=== PATIENT | male | born 1965 | race Caucasian/White ===

== ENCOUNTER 2024-02-18 08:18 | Outpatient (OUT) | payer OTHER, SELFPAY ==
[2024-02-18 08:39] LABS: Basophils Absolute Auto 0.1 10^3/uL (0.0-0.1); Basophils Percent Auto 0.6 % (0.2-2.0); Eosinophils Absolute Auto 0.1 10^3/uL (0.0-0.7); Eosinophils Percent Auto 1.6 % (0.9-7.0); Hematocrit 45.2 % (42.0-54.0); Hemoglobin 14.7 g/dL (14.0-18.0); Immature Granulocytes Abs Auto 0.04 10^3/uL (0.00-0.03); Immature Granulocytes Pct Auto 0.5 % (0.0-0.5); Lymphocytes Absolute Auto 2.5 10^3/uL (1.2-3.8); Lymphocytes Percent Auto 30.1 % (20.5-60.0); Mean Corpuscular HGB Conc 32.5 g/dL (29.9-35.2); Mean Corpuscular Hemoglobin 28.1 pg (25.9-34.0); Mean Corpuscular Volume 86.3 fL (80.0-94.0); Monocytes Absolute Auto 0.7 10^3/uL (0.3-0.8); Monocytes Percent Auto 8.1 % (1.7-12.0); Neutrophils Absolute Auto 4.9 10^3/uL (1.4-6.5); Neutrophils Percent Auto 59.1 % (43.0-75.0); Platelet Count 236 10^3/uL (150-450); Red Blood Count 5.24 10^6/uL (4.70-6.10); Red Cell Distribution Width 12.7 % (11.0-15.0); White Blood Count 8.3 10^3/uL (4.0-11.0)
[2024-02-18 09:26] LABS: Alanine Aminotransferase 38 U/L (16-63); Albumin Globulin Ratio 0.8; Albumin Level 3.4 g/dL (3.4-5.0); Alkaline Phosphatase 64 U/L (46-116); Anion Gap 13.3; Aspartate Amino Transferase 22 U/L (15-37); BUN Creatinine Ratio 15.5; Bilirubin Total 0.6 mg/dL (0.2-1.0); Calcium 9.1 mg/dL (8.5-10.1); Carbon Dioxide 25.9 mmol/L (21.0-32.0); Chloride 103 mmol/L (98-107); Chol HDL Ratio 5.3; Cholesterol 233 mg/dL (<=200); Estimated GFR (African America >60 (>=60); Estimated GFR (Non-African Ame >60 (>=60); Free T3 2.91 pg/mL (2.18-3.98); Globulin 4.3 g/dL; Glucose 131 mg/dL (74-106); HDL Cholesterol 44 mg/dL (40-60); Potassium 4.2 mmol/L (3.5-5.1); Sodium 138 mmol/L (136-145); Thyroid Stimulating Hormone 2.698 uIU/mL (0.358-3.740); Total Protein 7.7 g/dL (6.4-8.2); Triglycerides 204 mg/dL (<=150); VLDL CHOLESTEROL 40.8 mg/dL
[2024-02-18 09:31] LABS: Prostate Specific Antigen Scrn 3.47 ng/mL (<=4.00)
[2024-02-18 09:33] LABS: Estimated Average Glucose 131 mg/dL; Glycohemoglobin A1C 6.2 % (4.5-6.2)
[2024-02-19 08:11] LABS: Testosterone 222 ng/dL (264-916)
[2024-02-20 15:07] LABS: Insulin 27.5 uIU/mL (2.6-24.9)
== END 2024-02-18 08:19 | disposition home or self-care (01) ==
LOC: LAB 08:20
PROVIDERS: PCP Family Medicine; Visit Provider Family Medicine
DX: Z00.00 Encounter for general adult medical examination without abnormal findings (principal)
CPT/HCPCS: 36415; 80053; 80061; 83036; 83525; 84403; 84436; 84443; 84481; 85025; G0103

== ENCOUNTER 2024-03-11 11:49 | Outpatient (REF) | payer OTHER, SELFPAY ==
[2024-03-11 12:30] LABS: Occult Blood Negative
== END 2024-03-11 11:50 | disposition home or self-care (01) ==
LOC: LAB 11:49
PROVIDERS: PCP Family Medicine; Visit Provider Family Medicine
DX: Z00.00 Encounter for general adult medical examination without abnormal findings (principal)
CPT/HCPCS: G0328

== ENCOUNTER 2024-11-30 07:29 | Emergency (ER) | payer OTHER, SELFPAY ==
[2024-11-30 07:36] VITALS: BP 152/91; PULSE 97; TEMP 37.1; O2SAT 98; BMI 36.0
[2024-11-30 07:40] VITALS: O2SAT 98
--- OUTSIDE RECORDS SUMMARY | 2024-11-30 07:48 | XMS_ITS | CCD ---
Author Organization [facility] [employer] Care Team Providers Care Tongue And Quarter Stitcher Name Role Phone DR SKYLAR GARCIA Admitting Unavailable DR SKYLAR GARCIA Attending Unavailable DR SKYLAR GARCIA Primary Care Unavailable Encounters Encounter Date Encounter Type Care Provider Facility Start: 11-30-[address] SKYLAR GARCIA Facility : Payers Date Payer Category Payer Unknown [id number] 1959 Self-pay [id number] Summary Purpose Family History No Family History Records Found Advance Directives No Advanced Directives Records Found Additional Source Comments (unrecognized sect ion and content) No Status Records Found INFORMATION SOURCE (unrecogn ized section and content) DATE CREATED AUTHOR 12/01/2022 [facility]DS PERTAINING TO PATIENTS WHO ARE OR HAVE BEEN ENROLLED IN A CHEMICAL DEPENDENCY/SUBSTANCEABUSE PROGRAM, SOME INFORMATION MAY BE OMITTED. This clinical summary was aggregated from multiple sources. Caution should be exercised in using it in the provision of clinical care. This summary normalizes information from multiple sources, and as a consequence, information in this document may materially change the coding, format and clinical context of patient data. In addition, data may be omitted in some cases. CLINICAL DECISIONS SHOULD BE BASED ON THE PRIMARY CLINICAL RECORDS. [facility]. provides no warranty or guarantee of the accuracy or completeness of information in this document.
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
== END 2024-11-30 09:23 | disposition home or self-care (01) ==
PROVIDERS: Emergency Provider Emergency Medicine; PCP Family Medicine
DX: S50.02XA Contusion of left elbow, initial encounter (principal); S63.502A Unspecified sprain of left wrist, initial encounter; V49.49XA Driver injured in collision with other motor vehicles in traffic accident, initial encounter
CPT/HCPCS: 73080; 73090; 73110; 73130; 99284

== ENCOUNTER 2025-04-17 12:42 | Outpatient (OUT) | payer OTHER, SELFPAY ==
--- OUTSIDE RECORDS SUMMARY | 2024-06-14 12:00 | XMS_ITS ---
Author Organization The [facility] in [place] Address [address] [place] [address] Care Team Providers Care Clinical Dermatologist Name Role Phone Jacoby Hdz Primary Care Provider REASON FOR VISIT Testosterone Injection Encounters Encounter Location Date Provider Diagnosis [facility] [address] [place] [address] 06/14/2024 Jacoby Hdz Plan Of Treatment No Information Progress Notes * Enrique GARCIA RDOB: 6 (59 yo M)Acc No.[id number]:06/14/2024 UNLOCKED PROGRESS NOTE Progress Note Patient: Enrique CHACON Provider: Deborah Hdz MD (TTC) :1965 A ge:58 Y S ex:Male Date:06/14/2024 Address:[address] [place], [place] [address] [facility] Subjective: * Chief Complaints: * 1 . Testosterone Injection. * Medical History: Objective: * Vitals: Assessment: Plan: * Treatment: * * Electronic signature of Jacoby Hdz MD, [id number] on 04/17/2025 at 12:44 PM EDT Sign off status: Pending Visit Status: C ANC (Cancelled) * Provider: Deborah Hdz MD (TTC) Date: 0 06/14/2024 Generated for Printi ng/Faxing/eTransmitting on: 0 04/17/2025 12:44 PM EDT
--- OUTSIDE RECORDS SUMMARY | 2025-03-23 11:30 | XMS_ITS ---
Author Organization [facility] in [place] Address [address] [place] [address] Care Team Providers Care Courseware Developer Name Role Phone Shaunariel Jacoby Primary Care Provider Allergies No Known Allergies Reason For Referral Diagnosis 1 Sebaceous cyst (L72. 3) Referral Organization [facility] Referring Provider First Name Jacoby Referring Provider [...] W/U Status Risk Notes Problem Sebaceous cyst ([id number]) Sebaceous cyst (L72.3) Active confirmed Vital Signs Weight 224.8 lbs 03/23/2025 Height 68 in 03/23/2025 Blood pressure systolic 134 mm Hg 03/23/20 25 Blood pressure diastolic 82 mm Hg 025 Temperature 98.0 degrees Fahrenheit 03/23/20 25 BMI 34.18 kg/m2 03/23/2025 Encounters Encounter Location Date Provider Diagnosis [facility] [address] [place] [address] 03/23/2025 Jacoby Hoy Sebaceous cyst L72.3 and [...] Enrique GARCIA RDOB: [birth year] (59 yo M)Acc No.[id number]:03/23/2025 Progress Note Patient: Enrique CHACON Provider: Deborah Hdz ([facility])MD :1965 A ge:59 Y S ex:Male Date:03/23/2025 Address:[address] [place], [place] [id number] Check In:03:31 PM ESTCheck O ut:04:02 PM [...] Procedure Codes: * Preventive Medicine: Screenings/Counseling: B [place] ACTION PLAN Above Normal BMI Follow-up D ietary management education, guidance, and counseling * * Sign off status: Completed Visit Status: C HK (Check Out) true * Provider: Deborah Hdz ([facility])MD Date: 0 03/23/2025 Generated for Printi ng/Faxing/eTransmitting on: 0 04/17/2025 12:43 PM EDT History and Physical Notes * Physical Examination Category Sub-Category Detail Notes Section Note s R sided upper b ack - draingin cherry cyst - erytthem surrounding Consultation Request Notes Referral Date Referring Provider Referred Provider Not es 03/23/2025 Jacoby Hdz Michael
--- OUTSIDE RECORDS SUMMARY | 2025-04-17 12:44 | XMS_ITS | Clinical Summary ---
Author Organization [facility] Address [facility] [id number] [address] [id number] Care Team Providers Care Yeast Washer Name Role Phone Unavailable Primary Care Provider Unavailabl e Social History Tobacco Use Types Packs/Day Years Used Date Smoking Tobacco: Never Assessed Childcare Answer Date Recorded Childcare Unknown 04/26/2019 Employment Answer Date Recorded Employment Unknown 04/26/2019 Sex and Gender Information Value Date Recorded Sex Assigned at Not on file Legal Sex Male 9:38 AM EDT Gender Identity Not on file Sexual Orientation Not on file Plan of Treatment Not on file Medical Devices Not on file
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
== END 2025-04-17 12:43 | disposition home or self-care (01) ==
LOC: PST 12:42
PROVIDERS: PCP Family Medicine; Visit Provider Surgery
DX: Z01.818 Encounter for other preprocedural examination (principal); L72.0 Epidermal cyst

== ENCOUNTER 2025-04-25 11:36 | Day surgery (SDC) | payer OTHER, SELFPAY ==
--- OUTSIDE RECORDS SUMMARY | 2024-06-14 12:00 | XMS_ITS ---
Author Organization The [facility] in [place] Address [address] [place] [address] Care Team Providers Care Calculating Machine Mechanic Name Role Phone Jacoby Hdz Primary Care Provider [phone] REASON FOR VISIT Testosterone Injection Encounters Encounter Location Date Provider Diagnosis [facility] [address] [place] [address] 06/14/2024 Jacoby Hdz Plan Of Treatment No Information Progress Notes * Enrique GARCIA RDOB: 6 (59 yo M)Acc No.[id number]:06/14/2024 UNLOCKED PROGRESS NOTE Progress Note Patient: Enrique CHACON Provider: Deborah Hdz MD (TTC) :1965 A ge:58 Y S ex:Male Date:06/14/2024 Address:[address] [place], [place] [address] [facility] Subjective: * Chief Complaints: * 1 . Testosterone Injection. * Medical History: Objective: * Vitals: Assessment: Plan: * Treatment: * * Electronic signature of Jacoby Hdz MD, [id number] on 04/25/2025 at 11:39 AM EDT Sign off status: Pending Visit Status: C ANC (Cancelled) * Provider: Deborah Hdz MD (TTC) Date: 0 06/14/2024 Generated for Printi ng/Faxing/eTransmitting on: 0 04/25/2025 11:39 AM EDT
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
--- OUTSIDE RECORDS SUMMARY | 2025-03-23 11:30 | XMS_ITS ---
Author Organization [facility] in [place] Address [address] [place] [address] Care Team Providers Care Correctional Substance Abuse Counselor Name Role Phone Shaunariel Jacoby Primary Care Provider [phone] Allergies No Known Allergies Reason For Referral Diagnosis 1 Sebaceous cyst (L72. 3) Referral Organization [facility] Referring Provider First Name Jacoby Referring Provider Last Name Wilder Referring Provider Speciality Family Med jade Referred Provider Lazaro Reyna Referred Provider Specialty General Surg madisyn Referral Priority Routine REASON FOR VISIT spot on back- has been there a few weeks- thinks its infected-drainage, Started like pimple, was putting stuff on it, then had scabbed over, white pus underneath- green drainage- not as red as it was- said hole is really deep Medications Medication SIG (Take, Route, Frequency, Duration) Notes Start Date End Date Status Irbesartan 300 MG 1 tablet Orally Once a day for 30 days 02/14/2024 Active tiZANidine HCl 4 MG 2 tablets Orally at bedtime PRN 05/04/2024 Active Cefdinir 300 MG 2 capsule Orally onc e a day for 10 days 03/23/2025 Active Doxycycline Monohydrate 100 MG 1 capsule Orally bid for 10 days 03/23/2025 Active Social History Tobacco Use: Social History Observation Description Date Details (start date - stop date) Former Smoker NA - NA Tobacco Use/Smoking Question Answer Notes Patient is a former smoker When did you start smoking? 11-15-1979 When did you stop smoking? 11-15-1998 Problems Problem Type SNOMED Code ICD Code Onset Dates Problem Status W/U Status Risk Notes Problem Sebaceous cyst (419726192) Sebaceous cyst (L72.3) Active confirmed Vital Signs Weight 224.8 lbs 03/23/2025 Height 68 in 03/23/2025 Blood pressure systolic 134 mm Hg 03/23/20 25 Blood pressure diastolic 82 mm Hg 025 Temperature 98.0 degrees Fahrenheit 03/23/20 25 BMI 34.18 kg/m2 03/23/2025 Encounters Encounter Location Date Provider Diagnosis [facility] [address] [place] [address] 03/23/2025 Jacoby Hoy Sebaceous cyst L72.3 and Well adult Z00.00 Assessments Encounter Date Diagnosis (ICD Code) Assessment Notes Treatment Notes Treatment Clinical Notes Section Notes 03/23/2025 Sebaceous cyst (ICD-10 - L72.3) 03/23/2025 Well adult (ICD-10 - Z00.00) Plan Of Treatment Medication Medication Name Sig Start Date Stop Date Notes Cefdinir 300 MG 2 capsule Orally onc e a day for 10 days 03/23/2025 Doxycycline Monohydrate 100 MG 1 capsule Orally bid for 10 days 03/23/2025 Pending Test Test Name Order Date HEMOGLOBIN A1C (GLYCO) 03/23/2025 INSULIN, TOTAL 03/23/2025 LIPID PANEL (CHOL/TRIG/HDL/LDL) 03/23/20 STOOL OCCULT BLOOD 03/23/2025 THYROID PANEL (T4/TSH/FREE T3) PSA, SCREENING 03/23/2025 CMP (COMP MET JAY) w/eGFR CKD-EPI 2024 CBC WITH DIFF 03/23/2025 Referrals Referral Date Details 03/23/2025 03/23/2025, Lazaro Reyna Progress Notes * Enrique GARCIA RDOB: [birth year] (59 yo M)Acc No.[id number]:03/23/2025 Progress Note Patient: Enrique CHACON Provider: Deborah Hdz ([facility])MD :1965 A ge:59 Y S ex:Male Date:03/23/2025 Address:[address] [place], [place] [id number] Check In:03:31 PM ESTCheck O ut:04:02 PM EST Subjective: * Chief Complaints: * S pot on back- has been there a few weeks- thinks its infected-drainageStarted like pimple, was putting stuff on it, then had scabbed over, white pus underneath- green drainage- not as red as it was- said hole is really deep * Active Problem List G47.00 Insomnia Modified On:02/14/2024 Status:confirmed M54.9 Back pain Modified On:02/14/2024 Status:confirmed E66.3 Over weight Modified On:02/14/2024 Status:confirmed R73.09 Prediabetes Modified On:02/14/2024 Status:confirmed E78.00 Pure hypercholestero lemia Modified On:02/14/2024 Status:confirmed L30.9 Eczema Modified On:02/14/2024 Status:confirmed Z00.00 Well adult Modified On:02/14/2024 Status:confirmed 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 0 11-15-1998 * Medications: T akingIrbesartan 300 MG Tablet 1 tablet Orally Once a day tiZANidine HCl 4 MG Tablet 2 tablets Orally at bedtime , Notes to Pharmacist: PRNTaking Irbesartan 300 MG Tablet 1 tablet Orally Once a day Taking tiZANidine HCl 4 MG Tablet 2 tablets Orally at bedtime , Notes to Pharmacist: PRNDiscontinuedTestosterone Cypionate 200 MG/ML Solution 0.5 cc Intramuscular every other week Medication List reviewed and reconciled with the patientDiscontinued Testosterone Cypionate 200 MG/ML Solution 0.5 cc Intramuscular every other week Medication List reviewed and reconciled with the patient * Allergies: N .K.D.A.no[Allergies Verified] Objective: * Vitals: W t:224.8lbs, Ht: 68 in, BP:134/82mm Hg, Temp:98.0F, BMI:34.18Index, Ht-cm: 172.72 cm, Wt-k.97 kg. * Physical Examination: R sided upper back - draingin cherry cyst - erytthem surrounding. Assessment: * Assessment: 1. S ebaceous cyst - L72.3 (Primary) 2 . W ell adult - Z00.00 ? Plan: * Treatment: 2. W ell adult L AB: HEMOGLOBIN A1C (GLYCO) L AB: INSULIN, TOTAL L AB: LIPID PANEL (CHOL/TRIG/HDL/LDL) L AB: STOOL OCCULT BLOOD L AB: THYROID PANEL (T4/TSH/FREE T3) L AB: PSA, SCREENING L AB: CMP (COMP MET JAY) w/eGFR CKD-EPI L AB: CBC WITH DIFF * Procedure Codes: * Preventive Medicine: Screenings/Counseling: B MO ACTION PLAN Above Normal BMI Follow-up D ietary management education, guidance, and counseling * * Sign off status: Completed Visit Status: C HK (Check Out) true * Provider: Deborah Hdz ([facility])MD Date: 0 03/23/2025 Generated for Printi ng/Faxing/eTransmitting on: 0 04/25/2025 11:39 AM EDT History and Physical Notes * Physical Examination Category Sub-Category Detail Notes Section Note s R sided upper b ack - draingin cherry cyst - erytthem surrounding Consultation Request Notes Referral Date Referring Provider Referred Provider Not es 03/23/2025 Jacoby Hdz Michael
--- NOTE | 2025-04-25 | OP_ITS ---
OPERATION DATE: 04/25/2025 PREOPERATIVE DIAGNOSIS: Previously infected epidermal cyst of the right mid back. POSTOPERATIVE DIAGNOSIS: Previously infected epidermal cyst of the right mid back. PROCEDURE: Excisional biopsy of previously infected epidermal cyst right mid back. SURGEON: Lazaro Reyna M.D. ANESTHESIA: Local with 0.5% Marcaine plain. ESTIMATED BLOOD LOSS: Less than 7 mL. TOTAL LENGTH OF INCISION: 2 cm. INDICATIONS AND CONSENT: Patient is a 59-year-old male with history of previously infected epidermal cyst that did drain and was treated with antibiotics. Now, the inflammation and infection has resolved. There are no open areas. Now presents for definitive treatment. Indications, risks, benefits, alternatives of proceeding with excisional biopsy under local anesthesia were explained extensively to the patient, including the risks of bleeding, infection, scarring, pain, recurrence, need for further surgery. All of his questions were answered. Informed consent was obtained. PROCEDURE: Patient brought to the operating room, placed in the left lateral decubitus position. The area was prepped and draped in usual sterile fashion, was anesthetized with 0.5% Marcaine plain. The area was excised in elliptical fashion down to subcutaneous fat, including the central pore in the area of the previous scarring. Total length of the incision was 2 cm. It was sent off to pathology. Hemostasis was controlled with electrocautery. Incision was then closed with 3-0 nylon mattress sutures and 4-0 nylon simple sutures. There was good hemostasis. Sterile pressure dressing was applied. Sponge and needle counts were correct x2 per nursing personnel. Patient tolerated procedure well, was sent to recovery room and then discharged to home in good condition. CC: Heraclio Hdz M.D. [facility] HEALTH[facility]orah
--- OUTSIDE RECORDS SUMMARY | 2025-04-25 11:39 | XMS_ITS | Patient Health Record ---
Author Organization [facility] [place] Address [address] [place] [address] Care Team Providers Care Day Camp Counselor Name Role Phone Jacoby Garcia Primary Care Provider [phone] SKYLAR GARCIA Unavailable [phone] Allergies No Known Allergies Results Component Value Reference Range Notes XR forearm LT 2V Reviewed date:11/30/2024 07:59:14 PM Interpretation: Performing Lab: Notes/Report: Source Facility: [address] [address] XRay Report Signed Patient: ENRIQUE GARCIA MR#: [id number] : 1965 Acct:[id number] Age/Sex: 59 / M ADM Date: 11/30/24 Loc: ER Attending Dr: Ordering Physician: Rebecca Flores Date of Service: 11/30/24 Procedure(s): XR forearm LT 2V Accession Number(s): [id number] cc: Skylar Garcia M.D.; Rebecca Flores [address] [address] Patient Name: ENRIQUE GARCIA MRN: [id number] date: 1965 Sex: M Assigned Patient Location: ER Current Patient Location: ER Accession/Order Number: [id number] Exam Date: 11/30/2024 08:00 Report Date: 11/30/2024 08:41 At the request of: REBECCA FLORES Procedure: XR forearm LT 2V PROCEDURE: [...] M.D. Signed By: 11/30/2444 DD/ 0 TD/TT: School Director: [place] [address] XRay Report Signed Patient: JAMEY GARCIA MR#: [id number] : 1965 Acct:[id number] Age/Sex: 59 / M ADM Date: 11/30/24 Loc: ER Attending Dr: Ordering Physician: Rebecca Flores Date of Service: 11/30/24 Procedure(s): XR forearm LT 2V Accession Number(s): [id number] cc: Skylar Garcia M.D. ; Rebecca Flores [place] [address] Patient Name: ENRIQUE GARCIA MRN: [id number] date: 1965 Sex: M Assigned Patient Location: ER Current Patient Location: ER Accession/Order Numb er: [id number] Exam Date: 11/30/2024 08:00 Report Date: 11/30/2024 08:41 At the request of: REBECCA FLORES Procedure: XR forearm LT 2V PROCEDURE: [...] M.D. Signed By: 11/30/24 0844 DD/ TD/TT: School Director: XR elbow LT min 3V Reviewed date:11/30/2024 07:59:14 PM Interpretation: Performing Lab: Notes/Report: Source Facility: [place] [address] XRay Report Signed Patient: ENRIQUE GARCIA MR#: [id number] : 1965 Acct:[id number] Age/Sex: 59 / M ADM Date: 11/30/24 Loc: ER Attending Dr: Ordering Physician: Rebecca Flores Date of Service: 11/30/24 Procedure(s): XR elbow LT min 3V Accession Number(s): [id number] cc: Skylar Garcia M.D.; Rebecca Flores [place] [id number] Patient Name: ENRIQUE GARCIA MRN: [id number] date: 1965 Sex: M Assigned Patient Location: ER Current Patient Location: ER Accession/Order Number: [id number] Exam Date: 11/30/2024 08:00 Report Date: 11/30/2024 08:41 At the request of: REBECCA FLORES Procedure: XR elbow LT min 3V [...] M.D. Signed By: 11/30/2444 DD/ 0 TD/TT: School Director: [place] [address] XRay Report Signed Patient: JAMEY GARCIA MR#: [id number] : 1965 Acct:[id number] Age/Sex: 59 / M ADM Date: 11/30/24 Loc: ER Attending Dr: Ordering Physician: Rebecca Flores Date of Service: 11/30/24 Procedure(s): XR elbow LT min 3V Accession Number(s): [id number] cc: Skylar Garcia M.D. ; Rebecca Flores [place] [address] Patient Name: ENRIQUE GARCIA MRN: [id number] date: 1965 Sex: M Assigned Patient Location: ER Current Patient Location: ER Accession/Order Numb er: [id number] Exam Date: 11/30/2024 08:00 Report Date: 11/30/2024 08:41 At the request of: REBECCA FLORES Procedure: XR elbow LT min 3V [...] M.D. Signed By: 11/30/2444 DD/ 0 TD/TT: School Director: XR wrist LT min 3V Reviewed date:11/30/2024 07:59:14 PM Interpretation: Performing Lab: Notes/Report: Source Facility: [place] [address] [place] [address] XRay Report Signed Patient: ENRIQUE GARCIA MR#: [id number] : 1965 Acct:[id number] Age/Sex: 59 / M ADM Date: 11/30/24 Loc: ER Attending Dr: Ordering Physician: Rebecca Flores Date of Service: 11/30/24 Procedure(s): XR wrist LT min 3V Accession Number(s): [id number] cc: Skylar Garcia M.D.; Rebecca Flores [place] [address] Patient Name: ENRIQUE GARCIA MRN: [id number] date: 1965 Sex: M Assigned Patient Location: ER Current Patient Location: ER Accession/Order Number: [id number] Exam Date: 11/30/2024 08:00 Report Date: 11/30/2024 08:41 At the request of: REBECCA FLORES Procedure: XR wrist LT min 3V [...] M.D. Signed By: 11/30/2444 DD/ 0 TD/TT: School Director: [place] [address] XRay Report Signed Patient: JAMEY GARCIA MR#: [id number] : 1965 Acct:[id number] Age/Sex: 59 / M ADM Date: 11/30/24 Loc: ER Attending Dr: Ordering Physician: Rebecca Flores Date of Service: 11/30/24 Procedure(s): XR wrist LT min 3V Accession Number(s): [id number] cc: Skylar Garcia M.D. ; Rebecca Flores [place] [address] Patient Name: ENRIQUE GARCIA MRN: [id number] date: 1965 Sex: M Assigned Patient Location: ER Current Patient Location: ER Accession/Order Numb er: [id number] Exam Date: 11/30/2024 08:00 Report Date: 11/30/2024 08:41 At the request of: REBECCA FLORES Procedure: XR wrist LT min 3V [...] Signed By: 11/30/24 0844 DD/ 0841 TD/TT: School Director: XR HAND LT MIN 3V Reviewed date:11/30/2024 07:59:14 PM Interpretation: Performing Lab: Notes/Report: Source Facility: [place] [address] [place] [address] XRay Report Signed Patient: ENRIQUE GARCIA MR#: [id number] : 1965 Acct:[id number] Age/Sex: 59 / M ADM Date: 11/30/24 Loc: ER Attending Dr: Ordering Physician: Rebecca Flores Date of Service: 11/30/24 Procedure(s): XR hand LT min 3V Accession Number(s): [id number] cc: Skylar Garcia M.D.; Rebecca Flores [place] [phone] Patient Name: ENRIQUE GARCIA MRN: [id number] date: 1965 Sex: M Assigned Patient Location: ER Current Patient Location: ER Accession/Order Number: [id number] Exam Date: 11/30/2024 08:00 Report Date: 11/30/2024 08:41 At the request of: REBECCA FLORES Procedure: XR hand LT min 3V [...] M.D. Signed By: 11/30/2444 DD/ 0 TD/TT: School Director: [place] [address] XRay Report Signed Patient: JAMEY GARCIA MR#: [id number] : 1965 Acct:[id number] Age/Sex: 59 / M ADM Date: 11/30/24 Loc: ER Attending Dr: Ordering Physician: Rebecca Flores Date of Service: 11/30/24 Procedure(s): XR hand LT min 3V Accession Number(s): [id number] cc: Skylar Garcia M.D. ; Rebecca Flores [place] [phone] Patient Name: ENRIQUE GARCIA MRN: [id number] date: 1965 Sex: M Assigned Patient Location: ER Current Patient Location: ER Accession/Order Numb er: [id number] Exam Date: 11/30/2024 08:00 Report Date: 11/30/2024 08:41 At the request of: REBECCA MAKR Procedure: XR hand LT min 3V PROCEDURE: [...] M.D. Signed By: 11/30/24843 DD/ 0 TD/TT: School Director: Reason For Referral Diagnosis 1 Sebaceous cyst (L72. 3) Referral Organization [facility] Referring Provider First Name Jacoby Referring [...] Problem Status W/U Status Risk Notes Problem [id number] Testicular hypofunction (E29.1) Active confirmed Problem Sebaceous cyst (768715690) Sebaceous cyst (L72.3) Active confirmed Problem Hypertension (01569636) Hypertension (I10) Active confirmed Problem Prediabetes (226546206) Prediabetes (R73.09) Active confirmed Problem Insomnia (765958647) Insomnia (G47.00) Active c onfirmed Problem Eczema (53392411) Eczema (L30.9) Active confirm ed Problem Back pain (998825925) Back pain (M54.9) Active confirmed Problem Well adult (738653242) Well adult (Z00.00) Active confirmed Problem Overweight (650352182) Over weight (E66.3) Active confirmed Problem Pain in wrist (22104177) Wrist pain, acute, left (M25.532) Active confirmed Problem Pure hypercholesterolemia (214101697) Pure hypercholesterolemia (E78.00) Active confirmed Vital Signs Temperature 98.0 degrees Fahrenheit 03/23/2025 Blood pressure diastolic 82 mm Hg 03/23/2025 Height 68 in 03/23/2025 Blood pressure systolic 134 mm Hg 03/23/2025 Weight 224.8 lbs 03/23/2025 BMI 34.18 kg/m2 03/23/2025 Encounters Encounter Location Date Provider Diagnosis [facility] [address] [facility] [place] [address] 05/04/2024 SKYLAR WILDER [facility] [address] [place] [address] 05/30/2024 Jacoby Hoy [facility] [address] [place] [address] 12/04/2024 Jacoby Hoy Wrist pain, acute, l eft M25.532 [facility] [address] [place] [address] 03/23/2025 Jacoby Hoy Sebaceous cyst L72.3 and Well adult Z00.00 [facility] [address] [place] [address] 05/04/2024 SKYLAR HOY Testicular hypofunct ion E29.1 [facility] [address] [place] [place] [address] 05/17/2024 Jacoby Hoy Testicular hypofunct ion E29.1 [facility] [address] [place] [address] 05/31/2024 Jacoby Hoy Testicular hypofunct ion E29.1 Assessments Encounter Date Diagnosis (ICD Code) Assessment Notes Treatment Notes Treatment Clinical Notes Section Notes 05/04/2024 Testicular hypofunction (ICD-10 - E29.1) 05/17/2024 Testicular hypofunction (ICD-10 - E29.1) 05/31/2024 Testicular hypofunction (ICD-10 - E29.1) 12/04/2024 Wrist pain, acute, left (ICD-10 - M25.532) 03/23/2025 Sebaceous cyst (ICD-10 - L72.3) 03/23/2025 Well adult (ICD-10 - Z00.00) Plan Of Treatment Pending Test Test Name Order Date CMP (COMPLETE METABOLIC PANEL) HEMOGLOBIN A1C (GLYCO) 02/14/2024 HEMOGLOBIN A1C (GLYCO) 03/23/2025 INSULIN, TOTAL 03/23/2025 INSULIN, TOTAL 02/14/2024 LIPID PANEL (CHOL/TRIG/HDL/LDL) 02/14/20 24 LIPID PANEL (CHOL/TRIG/HDL/LDL) 03/23/20 25 CBC WITH DIFF 02/14/2024 PSA, PROSTATE-SPECIFIC ANTIGEN 4 STOOL OCCULT BLOOD 02/14/2024 STOOL OCCULT BLOOD 03/23/2025 TESTOSTERONE, TOTAL 02/14/2024 THYROID PANEL (T4/TSH/FREE T3) THYROID PANEL (T4/TSH/FREE T3) 5 PSA, SCREENING 03/23/2025 XR wrist LT min 3V 12/04/2024 CMP (COMP MET JAY) w/eGFR CKD-EPI 2024 CBC WITH DIFF 03/23/2025 Insurance Providers Payer Name Payer Address Payer Phone Subscriber Number Group Number Insured Name Patient Relationship to Insured Coverage Start Date Coverage End Date [employer] [address] [address] [place] [address] [id number] Enrique Garcia Self - patient is the insured [...]
--- OUTSIDE RECORDS SUMMARY | 2025-04-25 11:39 | XMS_ITS | Clinical Summary ---
Author Organization [employer] [facility] Address [id number] [address] [id number] Care Team Providers Care Promotional Marketing Agent Name Role Phone Unavailable Primary Care Provider [...]
[2025-04-25 11:50] VITALS: BP 173/86; PULSE 86; TEMP 36.2; O2SAT 96
--- OUTSIDE RECORDS SUMMARY | 2025-04-25 12:01 | XMS_ITS | CCD ---
Author Organization [facility] Care Team Providers Care Commercial Credit Portfolio Manager Name Role Phone DR SKYLAR HDZ Admitting Unavailable DR SKYLAR HDZ Attending Unavailable DR SKYLAR HDZ Primary Care Unavailable Skylar Hdz Primary Care Physician Lazaro BRANDT Attending Unavailable Skylar Hdz Referring Unavailable Allergies Allergy Classification Reported Allergen(s) Allergy Type Date of Onset Reaction(s) Facility (1 source) No Known Medication Allergies; Translations: [No Known Medication Allergies] Propensity to adverse reactions (disorder) [facility] Rep[facility] Medications Current Medications Medication Drug Class(es) Dates Sig (Normalized) Sig (Original) irbesartan 300 mg oral tablet (1 source) Angiotensin 2 Receptor Richie Start: 03-28-2025 take 1 tablet by mouth once daily irbesartan 300 mg Tab 300 mg = 1 tab(s), Oral, Daily, Refills(s) 0 Start Date: 03/28/25 Status: Ordered Repeat number: 1 tiZANidine 4 mg oral tablet (1 source) Central alpha-2 Adrenergic Agonist Start: 03-28-2025 take 2 tablets by mouth at bedtime tiZANidine 4 mg Tab 8 mg = 2 tab(s), Oral, Bedtime, Refills(s) 0 Start Date: 03/28/25 Status: Ordered Repeat number: 1 Problems Problem Classification Problem Date Documented Date Episodic/Chronic Allergic reactions (1 source) Eczema 03-28-2025 Episodic Disorders of lipid metabolism (1 source) Pure hypercholesterolemia 03-28-2025 Chroni c Essential hypertension (1 source) Hypertensive disorder 03-28-2025 Chronic Other endocrine disorders (1 source) Testicular hypofunction 03-28-2025 Chronic Other nutritional; endocrine; and metabolic disorders (1 source) Body mass index 30+ - obesity 04-04-2025 Chronic Other nutritional; endocrine; and metabolic disorders (1 source) Obesity caused by energy imbalance 03-28-2025 Chronic Other skin disorders (1 source) Epidermoid cyst; Translations: [Epidermal cyst] Onset: Episodic Other skin disorders (1 source) Epidermoid cyst of skin 04-04-2025 Episodic Results Test Name Value Interpretation Reference Range Facil ity Ambulatory Visit Summaryon 0 04-04-2025 Ambulatory Visit Summary Ambulatory Visit Summary MORENA GARCIA :1965 Visit Date:04/04/2025 Ambulatory Visit Instructions Your Care Team Attending Physician - KARLY COYLE, Lazaro Enriquez Primary Care Physician - Wilder COYLE, Skylar Referring Physician - Skylar Hdz MD This Is Your Medications List Contact prescribing physician if questions or concerns irbesartan (irbesartan 300 mg Tab) tizanidine (tiZANidine 4 mg Tab) Procedures Performed Closed fracture of fifth metatarsal bone of right foot, Tonsillectomy, Vasectomy. Discharge Vitals Heart Rate (Peripheral) 76 Respiratory Rate 16 Blood Pressure 142/90 Height 172.72 cm Height 68 in Weight 102.7 kg Weight 226.414 lb BMI 34.43 Medications What How Much When Instructions Unchanged irbesartan (irbesartan 300 mg Tab) 1 Tablets By Mouth Every day Contact prescribing physician if questions or concerns Unchanged tizanidine (tiZANidine 4 mg Tab) 2 Tablets By Mouth At bedtime Contact prescribing physician if questions or concerns Allergies No Known Allergies No Known Medication Allergies Problems Ongoing - Any problem that you are currently receiving treatment for. BMI 34.0-34.9,adult Eczema Hypertension Obesity due to excess calories Pure hypercholesterolemia Testicular hypofunction Patient Survey You may receive a survey via text or e-mail asking about your office visit. Please share your experience with us by completing your survey. We appreciate your feedback and thank you for choosing us for your care. [facility] Ambulatory Visit Summary Ambulatory Visit Summary MORENA GARCIA :1965 Visit Date:04/04/2025 Ambulatory Visit Instructions Your Care Team Attending Physician - KARLY COYLE, Lazaro Enriquez Primary Care Physician - Skylar Hdz MD Referring Physician - Skylar Hdz MD This Is Your Medications List Contact prescribing physician if questions or concerns irbesartan (irbesartan 300 mg Tab) tizanidine (tiZANidine 4 mg Tab) Procedures Performed Closed fracture of fifth metatarsal bone of right foot, Tonsillectomy, Vasectomy. Discharge Vitals Heart Rate (Peripheral) 76 Respiratory Rate 16 Blood Pressure 142/90 Height 172.72 cm Height 68 in Weight 102.7 kg Weight 226.414 lb BMI 34.43 Medications What How Much When Instructions Unchanged irbesartan (irbesartan 300 mg Tab) 1 Tablets By Mouth Every day Contact prescribing physician if questions or concerns Unchanged tizanidine (tiZANidine 4 mg Tab) 2 Tablets By Mouth At bedtime Contact prescribing physician if questions or concerns Allergies No Known Allergies No Known Medication Allergies Problems Ongoing - Any problem that you are currently receiving treatment for. BMI 34.0-34.9,adult Eczema Hypertension Obesity due to excess calories Pure hypercholesterolemia Testicular hypofunction Patient Survey You may receive a survey via text or e-mail asking about your office visit. Please share your experience with us by completing your survey. We appreciate your feedback and thank you for choosing us for your care. [facility] Vital Signs Date Time Vital Sign Value Performing Clinician Connie fagan 04-04-2025 15:39-0400 Blood Pressure Location Lazaro BRANDT [facility] [place] 04-04-2025 15:39-0400 Diastolic blood pressure 90 mm[Hg] Lazaro BRANDT [facility] 04-04-2025 15:39-0400 Heart rate 76 /min Lazaro BRANDT [facility] [place] 04-04-2025 15:39-0400 Respiratory rate 16 /min Lazaro BRANDT [facility] 04-04-2025 15:39-0400 Systolic blood pressure 142 mm[Hg] Lazaro BRANDT [facility] Encounters Encounter Date Encounter Type Care Provider Facility Start: 04-04-2025 End: 04-04-2025 ambulatory Lazaro BRANDT Facility:[facility] Start: 04-04-2025 End: 04-04-2025 Patient encounter procedure Lazaro BRANDT [facility] [place] Start: 03-26-2025 ambulatory Lazaro BRANDT Facility:[facility] Start: 11-30-[address] SKYLAR HDZ Facility :[facility] Procedures Date Procedure Procedure Detail Performing Clinician Closed fracture of f ifth metatarsal bone of right foot (disorder) Lazaro BRANDT Tonsillectomy Lazaro HARRISL Vasectomy Lazaro BRANDT Payers Date Payer Category Payer Unknown [id number] 2025 Unknown [id number] 1965 Unknown [id number] 1965 Unknown [id number] 1959 Self-pay [id number] Social History Date Type Detail Facility Start: 04-04-2025 Tobacco smoking status Ex-smoker (fi nding) [facility] Tobacco smoking status Never Jemal [facility] [place] Sexual Orientation [facility] [place] Sex Assigned At Male [facility] Sex Male (finding) [facility] Functional Status Date Assessment Result Facility 04-04-2025 Functional Status N/A [facility] [place] Clinical Note 04-04-2025 Note Date & Type Note Facility 04-04-2025 Note General Surgery Offi ce/Clinic Note Chief Complaint consultation for cyst HPI Staff 59 year old male presents on consultation from Dr. Hdz for sebaceous cyst. Patient noted cyst to right upper back several weeks ago. Recently cyst became red, swollen, tender and drained. On 03/23, PCP prescribed Doxycycline 100mg BID x 10 days and Cefdinir 600mg daily x 10 days, he finished entire course of ATB's. Reports area is no longer red, swollen or tender. Denies drainage. In addition, request to have evaluation of moles on back. History of Present Illness 59 yo male with h/o htn, hypercholesterolemia, eczema, referred for epidermal cyst; noted cyst on upper back several months ago, became painful, swollen, red and draining several weeks ago, placed on antibiotics by PCP 03/23/25; now pain and swelling has resolved, no further drainage; no asa or NSAID use; no tobacco use. Review of Systems PHQ Score Initial Depression Screen Score: 0 SCORE ROS - Provider Constitutional: no fever, no sweats, no weight loss. Eyes: no glasses, no blurred vision, no visual loss. ENMT: no dentures, no hoarseness, no swallowing difficulties, no hearing loss, no ear infection(s), no nose bleeds. Cardiovascular: normal blood pressure, no chest pain, regular heartbeat, no heart murmur. Respiratory: no shortness of breath, no cough, no asthma, no wheezing. Gastrointestinal: no nausea, no vomiting, no diarrhea, no constipation, no blood in stool, no change in bowel habits, no abdominal pain, no hepatitis. Genitourinary: no kidney stones, no urine infection, no dysuria. Musculoskeletal: no pain, no weakness. Skin: no changing moles, no rash, no skin lumps. Neurologic: no seizures, no epilepsy, no headache. Psychiatric: no emotional or psychiatric problem. Heme/Lymph: no bleeding problems, no anemia, no blood clots, no transfusions. Allergy/Immunologic: no swollen lymph nodes/glands, no IV drug abuse. Other: Additional ROS info: Except as noted in the above Review of Systems and in the History of Present Illness, all other systems have been reviewed and are negative or noncontributory. Physical Exam Vitals & Measurements HR: 76(Peripheral) RR: 16 BP: 142/90 HT: 172.72 cm HT: 68 in WT: 102.7 kg WT: 226.414 lb BMI: 34.43 HEENT: normal conjunctiva, sclera clear, no scleral icterus, EOM intact, PERRLA, oral mucosa moist without lesions. Neck: trachea midline, no mass, symmetric, no thyromegaly or nodules, no adenopathy Respiratory: lungs CTA, respirations non labored. Cardiovascular: regular rate and rhythm, no murmur, no pedal edema or varicosities. Gastrointestinal: obese, soft, non distended, no tenderness, no masses, no palpable hernias, diastasis recti no, no hepatosplenomegaly; normal bs Musculoskeletal: normal gait, digits and nails without infection, nodes, cyanosis, clubbing. Skin: no rashes, no lesions, no ulcers right mid back with 1.5 cm epidermal cyst; no erythema or drainage, no fluctuance or open areas. Psychiatric/Neuro: oriented to time, place, person, judgement normal, affect appropriate for age, insight intact, no focal deficits. Tests: , review of old records completed , Discussed surgical options, risks, and possible complications with patient. Assessment/Plan 1. Epidermal cyst (L72.0: Epidermal cyst) previously infected; now without inflammation; plan excisional biopsy under local anesthesia at [facility] for definitive diagnosis and treatment, informed consent obtained. Follow-up No qualifying data available Problem List/Past Medical History Ongoing BMI 34.0-34.9,adult Eczema Epidermal cyst Hypertension Obesity due to excess calories Pure hypercholesterolemia Testicular hypofunction Historical No qualifying data Procedure/Surgical History Closed fracture of fifth metatarsal bone of right foot, Tonsillectomy, Vasectomy. Medications irbesartan 300 mg Tab, 300 mg= 1 tab(s), Oral, Daily tiZANidine 4 mg Tab, 8 mg= 2 tab(s), Oral, Bedtime Allergies No Known Allergies No Known Medication Allergies Social History Alcohol Current. Beer. 3-5 times per week., 04/01/2025 Substance Abuse Never., 04/01/2025 Tobacco Former smoker, quit more than 30 days ago Tobacco Use:. Never Smokeless Tobacco Use:. Cigarettes, 1 per day. Started age 15.0 Years. Stopped age 38 Years., 04/04/2025 Family History Cancer: Father. Hypertension: Mother and Brother. [facility] Comment on above: Result Comment: Elec tronically Signed By: KARLY COYLE, Lazaro Cruz\Date and Time Signed: 04/04/25 16:03 EDT Evaluation + Plan note Note Date & Type Note Facility Evaluation + Plan note No data available for this section [facility] [place] [facility] Discharge instructions Note Date & Type Note Facility Hospital Discharge instructions No data available for this section [facility] [place] Progress note Note Date & Type Note Facility Progress note No data available for this section [facility] [place] Summary Purpose Family History No Family History Records Found No data available for this section No Family History Records Found Advance Directives No Advanced Directives Records FoundNo Advanced Directives Records Found Additional Source Comments (unrecognized sect ion and content) No Status Records FoundNo Status Records Found INFORMATION SOURCE (unrecogn ized section and content) DATE CREATED AUTHOR 12/01/2022 [facility] DATE CREATED AUTHOR AUTHOR'S ORGANIZ ATION 04/11/2025 [facility] Patient Care team informatio n (unrecognized section and content) Personnel Name: Skylar Hdz MD Address: [address] [place] [address] [employer]: FOR RECORDS PERTAINING TO PATIENTS WHO ARE [...] BE BASED ON THE PRIMARY CLINICAL RECORDS. [facility] [employer] [facility]. provides no warranty or guarantee of the accuracy or completeness of information in this document.
[2025-04-25 12:21] VITALS: BP 182/85; PULSE 75; O2SAT 97
[2025-04-25] MEDS: BUPIVACAINE HCL 0.5% PF 50 MG/10 ML VIAL 6 ML INJ (12:30)
[2025-04-25 12:41] VITALS: BP 164/74; PULSE 77; O2SAT 97
== END 2025-04-25 12:50 | disposition home or self-care (01) ==
PROVIDERS: PCP Family Medicine; Visit Provider Surgery
PROC: (CPT 11402; principal; 2025-04-25 11:25)
DX: L72.0 Epidermal cyst (principal)
CPT/HCPCS: 11402; 88304; J0665